=== PATIENT | female | born 1955 | race Caucasian/White ===

== ENCOUNTER 2016-08-05 12:00 | Emergency (ER) | payer BC, MEDICARE ==
[~2016-08-05 12:00] MED LIST: ADVAIR250 INH; AMB10 PO; AMBIEN CR12.5 MG PO; ANASPAZ0.125 MG PO; ARMOUR THYRO PO; BUTRANS1 EAC2 TOP; CALCIUM PLUS D; CALTRA600D PO; CALTRAT600 PO; CELEXA40 MG PO; CLARIT10 PO; CRESTOR10 PO; CYMBALTA30 PO; DIL2TAB PO; FIORICET 50-301 EACH PO; FIORICET OR; FLEX PO; FOLIC PO; GLUCOPHXR PO; IMU PO; IVIG; KLONO1 PO; LEVOTHYROXIN125 MCG PO; LEVOTHYROXIN150 MCG PO; LOP25 PO; MERIBIN5 MG PO; MUCINEX DM1 TAB OR; MULTIPLE VIT PO; NEUR600 PO; NOVOLOG; P10 PO; P5 PO; PILOCARPINE1 % OPH; PILOCARPINE5 MG OR; PREDNISONE PO; PREV30 PO; PROVENT20 INH; PROVHFA INH; SINGULAIR1 PO; SPIRIVA RESPIMAT INH; SUMATRIPTAN; SYN.15 PO; ULTRAM50 PO; VICTOZA; VITAMIN B-121000 MC1 SL; VITAMIN D31000 UNIT PO; ZANAFLEX 4 MG TA4 MG PO; [UNRECOGNIZED DRUG - CODE] PO; [UNRECOGNIZED DRUG - OTHER]
[2016-08-05 13:12] LABS: BASOPHILS 0.3 %; BASOPHILS ABSOLUTE 0.01 10/3/uL (0.0-0.16); EOSINOPHILS 0.6 %; EOSINOPHILS ABSOLUTE 0.02 10/3/uL (0.0-0.53); ER CBC TAT 0 Hrs 07 Mins; HEMATOCRIT 37.2 % (36.0-48.0); LYMPHOCYTES 16.5 %; LYMPHOCYTES ABSOLUTE 0.59 10/3/uL (0.67-4.30); MEAN CORPUS HGB CONC 34.9 g/dL (32.0-36.0); MEAN CORPUSCULAR HEMOGLOB 30.4 pg (26.0-34.0); MEAN PLATELET VOLUME 9.8 fL (9.2-13.0); MONOCYTES 7.3 %; MONOCYTES ABSOLUTE 0.26 10/3/uL (0.21-1.20); NEUTROPHILS 75.3 %; NEUTROPHILS ABSOLUTE 2.69 10/3/uL (2.02-8.40); PLATELET COUNT 185 10/3/uL (150-400); RBC DISTRIBUTION WIDTH 13.1 % (12.0-16.0); RED CELL COUNT 4.28 10/6/uL (4.0-5.6); WHITE BLOOD CELLS 3.6 10/3/uL (4.5-10.5)
[2016-08-05 13:17] LABS: MANUAL DIFF NO %; MEAN CORPUSCULAR VOLUME 86.9 fL (80-100)
[2016-08-05 13:24] LABS: INTERNATIONAL NORMAL RATI 1.1 UNITS (-); PARTIAL THROMBO TIME 23.4 SEC (22.5-37.2); PROTIME (NOT ORD) 14.1 SEC (12.0-14.5)
[2016-08-05 13:31] LABS: CALCIUM, SERUM 8.5 MG/DL (8.5-10.4); CHEST PAIN PROFILE TAT 0 Hrs 26 Mins; CHLORIDE, SERUM 113 MMOL/L (96-112); CO2 (CARBON DIOXIDE) 27 MMOL/L (24-34); CREATININE 0.69 MG/DL (0.55-1.02); GFR AFRICAN AMERICAN 110 ML/MIN (>=60); GFR NON AFRICAN AMERICAN 95 ML/MIN (>=60); GLUCOSE, SERUM 91 MG/DL (60-99); POTASSIUM, SERUM 3.9 MMOL/L (3.5-5.3); SODIUM, SERUM 146 MMOL/L (135-148); TROPONIN I 0.03 NG/ML (<0.05)
[2016-08-05 13:32] LABS: BUN (BLOOD UREA NITROGEN) 7 MG/DL (6-23)
[2016-09-17] MEDS ORDERED: BREO ELLIPTA INH (14:23)
[2016-09-17] MEDS ORDERED: SYNTHROID175 MCG PO (15:11)
[2016-09-17] MEDS ORDERED: NEUR600 PO (15:15)
[2016-09-17] MEDS ORDERED: MEDS (15:24)
== END 2016-08-05 14:36 | disposition home or self-care (01) ==
LOC: ER 12:00
PROVIDERS: Emergency Medicine
DX: R07.9 Chest pain, unspecified (principal); R53.1 Weakness; I48.91 Unspecified atrial fibrillation; F32.9 Major depressive disorder, single episode, unspecified; F41.9 Anxiety disorder, unspecified; E11.9 Type 2 diabetes mellitus without complications; Z88.2 Allergy status to sulfonamides; Z88.5 Allergy status to narcotic agent; Z91.048 Other nonmedicinal substance allergy status; Z79.899 Other long term (current) drug therapy; Z79.4 Long term (current) use of insulin
CPT/HCPCS: 71010; 80048; 83735; 84484; 85025; 85610; 85730; 93005; 99285